=== PATIENT | female | born 1980 | race Caucasian/White ===

== ENCOUNTER 2020-07-13 17:16 | Emergency (ER) | payer MEDICARE, MEDICAID ==
[~2020-07-13 17:16] MED LIST: ALBU8HFA PO; DIAZ2TAB PO; NAPR-1154 PO; ONDA4TAB6 PO; ONDA8TAB9 PO; PRED10TA PO; RIZA10TA27 PO; SUCR1TAB PO; SUMA25TA35 PO
--- NOTE | 2020-07-13 18:01 | NUR ---
Per registration, patient signed in and then immediately left the department due to the amount of people in the waiting room.
== END 2020-07-13 18:03 | disposition left against medical advice (07) ==
LOC: ER 17:17
DX: M54.2 Cervicalgia (principal); M54.89 Other dorsalgia; Z53.21 Procedure and treatment not carried out due to patient leaving prior to being seen by health care provider